=== PATIENT | female | born 1955 | race Caucasian/White ===

== ENCOUNTER 2017-11-14 14:27 | Inpatient (IN) | payer OTHER ==
[~2017-11-14 14:27] MED LIST: LORAZEPAM 2 MG INJ
[2017-11-14] MEDS: SOD CHLORIDE 0.9% 1,000 ML IV (14:46)
[2017-11-14 15:33] LABS: ADD MAN DIFF? NO
[2017-11-14 15:37] LABS: WHITE BLOOD COUNT 9.6 10^3/ul (4.8-10.8)
[2017-11-14 15:37] LABS: BASOPHIL # 0.1 10^3/ul (0.0-0.1); BASOPHILS % 0.7 % (0.0-2.0); EOSINOPHILS # 0.1 10^3/ul (0.0-0.5); EOSINOPHILS % 0.7 % (0.0-7.0); HEMATOCRIT 35.9 % (37.0-47.0); HEMOGLOBIN 12.3 g/dl (12.0-16.0); LYMPHOCYTES # 1.4 10^3/ul (0.8-2.9); LYMPHOCYTES % 14.3 % (15.0-51.0); MEAN CORPUSCULAR HEMOGLOBIN 28.9 pg (29.0-33.0); MEAN CORPUSCULAR HGB CONC 34.3 g/dl (32.0-37.0); MEAN CORPUSCULAR VOLUME 84.5 fl (82.0-101.0); MEAN PLATELET VOLUME 8.7 fl (7.4-10.4); MONOCYTE # 0.6 10^3/ul (0.3-0.9); MONOCYTES % 6.6 % (0.0-11.0); NEUTROPHIL # 7.4 10^3/ul (1.6-7.5); NEUTROPHILS % 77.4 % (39.0-77.0); PLATELET COUNT 380 10^3/UL (140-415); RED BLOOD COUNT 4.25 10^6/ul (4.20-5.40); RED CELL DISTRIBUTION WIDTH 12.2 % (11.5-14.5)
[2017-11-14 16:01] LABS: ANION GAP 18 (8-16); BLOOD UREA NITROGEN 10 mg/dl (7-20); CALCIUM 8.9 mg/dl (8.4-10.2); CARBON DIOXIDE 24 mmol/L (21-31); CHLORIDE 101 mmol/L (97-110); CREATININE 0.63 mg/dl (0.44-1.00); GLUCOSE 155 mg/dl (70-220); POTASSIUM 4.4 mmol/L (3.5-5.1); SODIUM 139 mmol/L (135-144)
[2017-11-14 16:02] LABS: ETHANOL < 10.0 mg/dl
[2017-11-14] MEDS: LORAZEPAM 2 MG INJ IV (16:43)
[2017-11-14] MEDS: IOHEXOL 100 ML (16:58)
[2017-11-14] MEDS: SOD CHLORIDE 0.9% 100 ML (16:58)
[2017-11-14 17:27] LABS: ADD UMIC YES; UR ASCORBIC ACID NEGATIVE (NEGATIVE); UR BACTERIA FEW /HPF (NONE SEEN); UR BILIRUBIN (Dip) NEGATIVE (NEGATIVE); UR BLOOD (Dip) NEGATIVE (NEGATIVE); UR CLARITY CLEAR (CLEAR); UR COLOR STRAW (YELLOW); UR GLUCOSE (Dip) NEGATIVE (NEGATIVE); UR KETONES (Dip) NEGATIVE (NEGATIVE); UR LEUKOCYTE ESTERASE (Dip) TRACE Leu/ul (NEGATIVE); UR NITRITE (Dip) NEGATIVE (NEGATIVE); UR RBC 0 /HPF (0-5); UR SPECIFIC GRAVITY (Dip) 1.004 (1.003-1.030); UR TOTAL PROTEIN (Dip) NEGATIVE (NEGATIVE); UR UROBILINOGEN (Dip) NEGATIVE (NEGATIVE); UR WBC 3 /HPF (0-5)
[2017-11-14 17:47] LABS: AMPHETAMINE/METHAMPHETAMINE Negative (NEGATIVE); BARBITURATES Negative (NEGATIVE); BENZODIAZEPINES Negative (NEGATIVE); CANNABINOIDS Negative (NEGATIVE); COCAINE Negative (NEGATIVE); OPIATES Negative (NEGATIVE)
[2017-11-14] MEDS ORDERED: ZOLPIDEM 5 MG TAB PO (19:00)
[2017-11-14] MEDS ORDERED: ONDANSETRON 4 MG INJ IV (19:00)
[2017-11-14] MEDS ORDERED: NACL 0.9% 3 ML SYG IV (19:00)
[2017-11-14] MEDS ORDERED: LORAZEPAM 2 MG INJ IV (19:00)
[2017-11-14] MEDS ORDERED: ACETAMINOPHEN 325 MG TAB PO (19:00)
[2017-11-14] MEDS ORDERED: morphine 2 MG INJ IV (19:00)
[2017-11-14] MEDS ORDERED: HYDROCODONE/APAP (5/325) TAB PO (19:00)
[2017-11-14] MEDS ORDERED: METOPROLOL 25 MG TAB PO (23:00)
[2017-11-15] MEDS: ATORVASTATIN 10 MG TAB PO ×2 (02:22→20:54)
[2017-11-15] MEDS: SOD CHLORIDE 0.9% 1,000 ML IV ×3 (02:22→19:55)
[2017-11-15] MEDS: ASPIRIN (EC) 81 MG TAB PO (02:22)
[2017-11-15] MEDS: LEVETIRACETAM 1000 MG (PMX) 100 ML IVPB (02:55)
[2017-11-15] MEDS: PANTOPRAZOLE (EC) 40 MG TAB PO (05:36)
[2017-11-15 08:25] LABS: ADD MAN DIFF? NO
[2017-11-15 08:31] LABS: BASOPHIL # 0.1 10^3/ul (0.0-0.1); BASOPHILS % 0.5 % (0.0-2.0); EOSINOPHILS # 0.1 10^3/ul (0.0-0.5); EOSINOPHILS % 1.1 % (0.0-7.0); HEMATOCRIT 34.4 % (37.0-47.0); HEMOGLOBIN 11.7 g/dl (12.0-16.0); LYMPHOCYTES # 2.1 10^3/ul (0.8-2.9); LYMPHOCYTES % 21.4 % (15.0-51.0); MEAN CORPUSCULAR VOLUME 85.1 fl (82.0-101.0); MONOCYTE # 0.5 10^3/ul (0.3-0.9); MONOCYTES % 5.1 % (0.0-11.0); NEUTROPHIL # 6.9 10^3/ul (1.6-7.5); NEUTROPHILS % 71.6 % (39.0-77.0); PLATELET COUNT 345 10^3/UL (140-415); RED BLOOD COUNT 4.04 10^6/ul (4.20-5.40); RED CELL DISTRIBUTION WIDTH 12.7 % (11.5-14.5)
[2017-11-15 08:31] LABS: WHITE BLOOD COUNT 9.7 10^3/ul (4.8-10.8)
[2017-11-15 08:48] LABS: ALANINE AMINOTRANSFERASE 23 IU/L (13-69); ALBUMIN 4.2 g/dl (3.3-4.9); ALBUMIN/GLOBULIN RATIO 1.23; ALKALINE PHOSPHATASE 73 IU/L (42-121); ANION GAP 19 (8-16); ASPARTATE AMINO TRANSFERASE 21 IU/L (15-46); BILIRUBIN,INDIRECT 0.2 mg/dl (0-1.1); BILIRUBIN,TOTAL 0.2 mg/dl (0.2-1.3); BLOOD UREA NITROGEN 8 mg/dl (7-20); CALCIUM 8.8 mg/dl (8.4-10.2); CARBON DIOXIDE 25 mmol/L (21-31); CHLORIDE 107 mmol/L (97-110); CHOL/HDL RATIO 5.9 RATIO; CHOLESTEROL 195 mg/dl (100-200); CREATININE 0.61 mg/dl (0.44-1.00); GLUCOSE 130 mg/dl (70-220); HDL CHOLESTEROL 33 mg/dl (35-98); LDL CHOLESTEROL,CALCULATED 104 mg/dl; MAGNESIUM 1.8 mg/dl (1.7-2.5); POTASSIUM 3.7 mmol/L (3.5-5.1); SODIUM 147 mmol/L (135-144); TOTAL PROTEIN 7.6 g/dl (6.1-8.1); TRIGLYCERIDES 290 mg/dl (0-149)
[2017-11-15] MEDS: LEVETIRACETAM 500 MG TAB PO ×2 (08:57→20:54)
[2017-11-15] MEDS ORDERED: LISINOPRIL 10 MG TAB PO (09:00)
[2017-11-15] MEDS ORDERED: FAMOTIDINE 20 MG INJ IV (09:00)
[2017-11-15] MEDS ORDERED: ASPIRIN (EC) 81 MG TAB PO (09:00)
[2017-11-15 09:16] LABS: THYROID STIMULATING HORMONE 0.649 MIU/L (0.465-4.680)
[2017-11-15 09:22] LABS: HEMOGLOBIN A1C 6.7 % (0-5.9)
[2017-11-15] MEDS: ENOXAPARIN 40 MG/0.4 ML SYG SC (19:02)
[2017-11-15] MEDS: METOPROLOL (XL) 50 MG TAB PO (20:55)
[2017-11-15] MEDS ORDERED: hydrALAzine 20 MG INJ IV (21:00)
[2017-11-16] MEDS: PANTOPRAZOLE (EC) 40 MG TAB PO (06:09)
[2017-11-16] MEDS: SOD CHLORIDE 0.9% 1,000 ML IV (08:25)
[2017-11-16] MEDS: LEVETIRACETAM 500 MG TAB PO (08:31)
[2017-11-16] MEDS: ENOXAPARIN 40 MG/0.4 ML SYG SC (08:31)
[2017-11-16] MEDS: METOPROLOL (XL) 50 MG TAB PO (08:32)
[2017-11-19 10:21] LABS: LEVETIRACETAM 60.4 mcg/mL
== END 2017-11-16 15:00 | disposition home or self-care (01) | DRG 101 ==
LOC: MS4 19:01 → E/R 14:27
DX: G40.909 Epilepsy, unspecified, not intractable, without status epilepticus (principal); I95.9 Hypotension, unspecified; I10 Essential (primary) hypertension; E03.9 Hypothyroidism, unspecified; E78.5 Hyperlipidemia, unspecified; F41.9 Anxiety disorder, unspecified; E86.0 Dehydration; R25.2 Cramp and spasm
CPT/HCPCS: 36415; 70450; 70496; 70498; 71045; 80048; 80053; 80061; 80177; 80306; 80307; 81001; 82962; 83036; 83735; 84146; 84443; 85025; 87086; 93306; 95819; 96374; 97161; 99285-25

== ENCOUNTER 2018-04-17 16:27 | Emergency (ER) | payer OTHER ==
[2018-04-17 17:17] LABS: ADD MAN DIFF? NO
[2018-04-17] MEDS: SOD CHLORIDE 0.9% 1,000 ML IV (17:23)
[2018-04-17] MEDS: LORAZEPAM 2 MG INJ IV (17:23)
[2018-04-17 17:24] LABS: WHITE BLOOD COUNT 7.9 10^3/ul (4.8-10.8)
[2018-04-17 17:24] LABS: BASOPHIL # 0.1 10^3/ul (0.0-0.1); BASOPHILS % 0.6 % (0.0-2.0); EOSINOPHILS % 0.3 % (0.0-7.0); HEMATOCRIT 31.5 % (37.0-47.0); HEMOGLOBIN 11.1 g/dl (12.0-16.0); LYMPHOCYTES # 1.1 10^3/ul (0.8-2.9); LYMPHOCYTES % 13.9 % (15.0-51.0); MEAN CORPUSCULAR HGB CONC 35.2 g/dl (32.0-37.0); MEAN CORPUSCULAR VOLUME 82.2 fl (82.0-101.0); MEAN PLATELET VOLUME 8.7 fl (7.4-10.4); MONOCYTE # 0.2 10^3/ul (0.3-0.9); MONOCYTES % 2.9 % (0.0-11.0); NEUTROPHIL # 6.5 10^3/ul (1.6-7.5); PLATELET COUNT 573 10^3/UL (140-415); RED BLOOD COUNT 3.83 10^6/ul (4.20-5.40); RED CELL DISTRIBUTION WIDTH 11.7 % (11.5-14.5)
[2018-04-17 17:40] LABS: ANION GAP 16 (8-16); BLOOD UREA NITROGEN 11 mg/dl (7-20); CALCIUM 9.5 mg/dl (8.4-10.2); CARBON DIOXIDE 29 mmol/L (21-31); CHLORIDE 95 mmol/L (97-110); GLUCOSE 216 mg/dl (70-220); POTASSIUM 3.2 mmol/L (3.5-5.1); SODIUM 137 mmol/L (135-144)
[2018-04-17 17:43] LABS: INR 1.09; PROTIME 14.3 Sec (11.9-14.9); PT RATIO 1.1
[2018-04-17] MEDS: POTASSIUM CHLORIDE (SR) 20 MEQ TAB PO (17:50)
== END 2018-04-17 20:09 | disposition home or self-care (01) ==
LOC: E/R 20:09
DX: R56.9 Unspecified convulsions (principal); R40.2252 Coma scale, best verbal response, oriented, at arrival to emergency department; E87.6 Hypokalemia; I10 Essential (primary) hypertension; E03.9 Hypothyroidism, unspecified; R40.2142 Coma scale, eyes open, spontaneous, at arrival to emergency department; R40.2362 Coma scale, best motor response, obeys commands, at arrival to emergency department; R06.02 Shortness of breath
CPT/HCPCS: 70450; 80048; 85025; 85610; 85730; 93005; 96374; 99285-25

== ENCOUNTER 2018-12-06 21:50 | Inpatient (IN) | payer OTHER ==
[2018-12-06] MEDS: SOD CHLORIDE 0.9% 1,000 ML IV (22:15)
[2018-12-06 22:20] LABS: ADD MAN DIFF? NO
[2018-12-06 22:22] LABS: BASOPHILS % 0.4 % (0.0-2.0); EOSINOPHILS # 0.1 10^3/ul (0.0-0.5); EOSINOPHILS % 0.5 % (0.0-7.0); HEMATOCRIT 33.7 % (37.0-47.0); HEMOGLOBIN 11.3 g/dl (12.0-16.0); LYMPHOCYTES # 1.3 10^3/ul (0.8-2.9); LYMPHOCYTES % 13.4 % (15.0-51.0); MEAN CORPUSCULAR HEMOGLOBIN 29.1 pg (29.0-33.0); MEAN CORPUSCULAR HGB CONC 33.5 g/dl (32.0-37.0); MEAN CORPUSCULAR VOLUME 86.9 fl (82.0-101.0); MEAN PLATELET VOLUME 9.2 fl (7.4-10.4); MONOCYTE # 0.3 10^3/ul (0.3-0.9); MONOCYTES % 3.4 % (0.0-11.0); NEUTROPHIL # 8.1 10^3/ul (1.6-7.5); NEUTROPHILS % 81.8 % (39.0-77.0); PLATELET COUNT 339 10^3/UL (140-415); RED BLOOD COUNT 3.88 10^6/ul (4.20-5.40); RED CELL DISTRIBUTION WIDTH 12.3 % (11.5-14.5)
[2018-12-06 22:22] LABS: WHITE BLOOD COUNT 9.9 10^3/ul (4.8-10.8)
[2018-12-06 22:41] LABS: ANION GAP 11 (5-13); BLOOD UREA NITROGEN 14 mg/dl (7-20); CALCIUM 9.2 mg/dl (8.4-10.2); CARBON DIOXIDE 27 mmol/L (21-31); CHLORIDE 101 mmol/L (97-110); CREATININE 0.69 mg/dl (0.44-1.00); ETHANOL < 10.0 mg/dl (0-0); Estimated GFR > 60 mL/min (>60); GLUCOSE 187 mg/dl (70-220); INR 1.07; PT RATIO 1.1; SODIUM 139 mmol/L (135-144)
[2018-12-06] MEDS: LEVETIRACETAM 1000 MG (PMX) 100 ML IVPB (22:44)
[2018-12-06 22:52] LABS: TROPONIN-I < 0.012 ng/ml (0.000-0.120)
[2018-12-06 22:57] LABS: FREE T4 (FREE THYROXINE) 6.56 ng/dl (0.78-2.44)
[2018-12-06] MEDS ORDERED: ACETAMINOPHEN 325 MG TAB PO (23:00)
[2018-12-06] MEDS ORDERED: ONDANSETRON 4 MG INJ IV (23:00)
[2018-12-06 23:11] LABS: ADD UMIC YES; UR ASCORBIC ACID NEGATIVE (NEGATIVE); UR BILIRUBIN (Dip) NEGATIVE (NEGATIVE); UR BLOOD (Dip) NEGATIVE (NEGATIVE); UR CLARITY SLIGHTLY CLOUDY (CLEAR); UR COLOR YELLOW (YELLOW); UR GLUCOSE (Dip) NEGATIVE (NEGATIVE); UR KETONES (Dip) NEGATIVE (NEGATIVE); UR LEUKOCYTE ESTERASE (Dip) 2+ Leu/ul (NEGATIVE); UR NITRITE (Dip) NEGATIVE (NEGATIVE); UR RBC 2 /HPF (0-5); UR SQUAMOUS EPITHELIAL CELL FEW /HPF (FEW); UR TOTAL PROTEIN (Dip) NEGATIVE (NEGATIVE); UR UROBILINOGEN (Dip) NEGATIVE (NEGATIVE); UR WBC 5 /HPF (0-5)
[2018-12-06 23:30] LABS: AMPHETAMINE/METHAMPHETAMINE Negative (NEGATIVE); BARBITURATES Negative (NEGATIVE); BENZODIAZEPINES Positive (NEGATIVE); CANNABINOIDS Negative (NEGATIVE); COCAINE Negative (NEGATIVE); OPIATES Negative (NEGATIVE)
[2018-12-07] MEDS ORDERED: ONDANSETRON 4 MG INJ IV
[2018-12-07] MEDS ORDERED: LORAZEPAM 2 MG INJ IV
[2018-12-07] MEDS ORDERED: morphine 2 MG INJ IV
[2018-12-07] MEDS ORDERED: ACETAMINOPHEN 325 MG TAB PO
[2018-12-07] MEDS: POTASSIUM CHLORIDE (SR) 20 MEQ TAB PO (00:16)
[2018-12-07 00:45] LABS: TRIIODOTHYRONINE 0.92 ng/ml (0.97-1.69)
[2018-12-07] MEDS: SOD CHLORIDE 0.9% 1,000 ML IV ×2 (03:00→11:44)
[2018-12-07] MEDS: LEVOFLOXACIN 750MG/D5W (PMX) 150 ML IVPB (03:02)
[2018-12-07] MEDS: AMLODIPINE 5 MG TAB GTB (09:00)
[2018-12-07] MEDS: METOPROLOL 50 MG TAB PO (09:00)
[2018-12-07] MEDS: LEVETIRACETAM 1500 MG (PMX) 100 ML IVPB ×2 (10:02→20:26)
[2018-12-08] MEDS: LEVETIRACETAM 1500 MG (PMX) 100 ML IVPB (09:23)
== END 2018-12-08 16:42 | disposition home or self-care (01) | DRG 101 ==
LOC: TEL 22:59 → E/R 21:50
PROVIDERS: Legal Medicine
DX: G40.909 Epilepsy, unspecified, not intractable, without status epilepticus (principal); E78.5 Hyperlipidemia, unspecified; I10 Essential (primary) hypertension; E03.9 Hypothyroidism, unspecified; I48.91 Unspecified atrial fibrillation; Z86.73 Personal history of transient ischemic attack (TIA), and cerebral infarction without residual deficits
CPT/HCPCS: 36415; 70450; 70551; 71045; 80048; 80307; 81001; 82962; 84439; 84443; 84480; 84481; 84484; 85025; 85610; 96374; 97161; 99285-25; G0378